=== PATIENT | female | born 1995 | race Caucasian/White ===

== ENCOUNTER 2020-02-22 14:08 | Emergency (ER) | payer OTHER ==
--- NOTE | 2020-02-22 14:21 | PDOC ---
Rapid Medical Evaluation Time Seen by Provider: 02/22/20 14:15 Medical Evaluation: Allergies Allergy/AdvReac Type Severity Reaction Status Date / Time No Known Allergies Allergy Verified 02/22/20 14:14 02/22/20 14:15 Pt is currently 38 weeks , presenting to the ER today for lightheadedness, swelling and headache. She states she is very swollen which worsened overnight. She is currently on methadone, missed her dose today d/t her symptoms. 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 Carvalho with [facility] Exam: 3+ swelling b/l. BP 140/88 DDX: Help syndrome with withdrawal ssx Will send to L&D for evaluation Discharge Disposition - Diagnosis Lightheaded Edema Qualifiers: Edema type: unspecified Qualified Code(s): R60.9 - Edema, unspecified - Referrals - Patient Instructions - Post Discharge Activity
[2020-02-22 14:23] VITALS: BMI 49.8
[2020-02-22 16:42] VITALS: BP 136/78; PULSE 94; TEMP 98
[2020-02-22 17:50] LABS: BASO % 0.2 % (0-2.0); EOS % 0.9 % (0-4.5); HEMATOCRIT 23.9 % (32.4-45.2); HEMOGLOBIN 7.2 GM/dL (10.7-15.3); LYMPH % 16.2 % (8-40); MCH 20.3 pg (25.7-33.7); MCHC 30.3 g/dl (32.0-36.0); MEAN PLT VOLUME 10.1 fl (7.5-11.1); MONO % 5.6 % (3.8-10.2); NEUT % 77.1 % (42.8-82.8); PLATELET COUNT 212 K/MM3 (134-434); RBC 3.56 M/mm3 (3.60-5.2); RDW 21.5 % (11.6-15.6); WHITE BLOOD COUNT 7.4 K/mm3 (4.0-10.0)
[2020-02-22] MEDS ORDERED: METHADONE HCL 10 MG TABLET (FOR DETOX USE ONLY) PO ONE (18:00)
[2020-02-22 18:03] LABS: URIC ACID 5.4 mg/dL (2.6-7.2)
[2020-02-22 18:06] LABS: RETICULOCYTES 2.78 % (0.5-1.5)
[2020-02-22] MEDS ORDERED: METHADONE HCL 10 MG TABLET ONE (18:15)
[2020-02-22] MEDS ORDERED: METHADONE 120 MG, METHADONE 20 MG PO ONE (18:15)
[2020-02-22] MEDS ORDERED: METHADONE HCL 40 MG DISPERSABLE TABLET ONE (18:16)
--- NOTE | 2020-02-22 19:21 | HP ---
Past Medical History - Primary Care Physician PCP:: Jessica Medina - Admission Chief Complaint: 24 yrs ,38.4 wks GA, previous c/section, presented in ER due to massive edema of feet , pain in legs , difficult to walk. c/o lightheaded. pt h/o substance abuse, on Methadone 140 mg po daily .She had not taking her today's Methadone dose. pt has pnc at [facility] History of Present Illness: pnc at [facility] 02/21/20 us 38.2/7 wks, m bpp10/10, h/o RHOGAM taken on 07/20/19 chart reviewed 06/12/19 O Neg, , rubella immune neg, varicell immune, hiv neg, hbsag neg , pavo viruus B19 ig pos, igM neg , h/h 11.3/33.4 , rpr nr ,TSH 3.64 pt states she was non compliant for visits she used cocaine & crack twice during pregn she went to [facility] for Methadone , 140 mg daily po pt states she was placed on monitor yesterday 02/21/20 for long time > 2hrs , aftervlt lateral position FHR was satisfactory she was discharged History Source: Patient, Medical Record Limitations to Obtaining History: No Limitations - Past Medical History 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 Weeks Gestation by Dates: 38.4 ...EDC by Dates: 02/28/20 ...EDC by Sono: 03/04/20 (38.4 by us ) Heme/Onc: Yes: Anemia Psych: Yes: Addictions (heroin & crack abuse rx at [facility] currently on methadone 140 mg po daily), Depression Musculoskeletal: Yes: Other (h/o autoimmune muscle joint problems) Endocrine: Yes: Hypothyroidism (s/p thyroidectomy rx po synthyroid 350mcg po dily) - Past Surgical History Past Surgical History: Yes: (06/16/2017), Tonsillectomy Hx Myomectomy: No Hx Transabdominal Cerclage: No Additional Surgical History: thyroidectomy in 2010 - Smoking History Smoking history: Never smoked Have you smoked in the past 12 months: Yes If you are a former smoker, when did you quit?: 06/2019 - Alcohol/Substance Use Hx Alcohol Use: No History of Substance Use: reports: Cocaine, Heroin Date of Last Use: 01/18/20 - Social History History of Recent Travel: No Home Medications - Allergies Allergies/Adverse Reactions: Allergies Allergy/AdvReac Type Severity Reaction Status Date / Time No Known Allergies Allergy Verified 02/22/20 14:14 - Home Medications Home Medications: Ambulatory Orders Buprenorphine/Naloxone HCl [Suboxone 12 mg-3 mg Sl Film] 140 tab SL DAILY 12/17/18 Clonazepam [Klonopin] 0.5 mg PO TID 12/17/18 Levothyroxine Sodium [Synthroid] 350 mcg PO DAILY 12/17/18 Review of Systems - Review of Systems Constitutional: reports: No Symptoms, Weakness, Other (lightheaded) Eyes: reports: No Symptoms. denies: Blind Spots, Blurred Vision HENT: reports: No Symptoms, Other (no headache) Neck: reports: No Symptoms Cardiovascular: reports: No Symptoms Respiratory: reports: No Symptoms Gastrointestinal: reports: No Symptoms Genitourinary: reports: No Symptoms Breasts: reports: No Symptoms Reported Musculoskeletal: reports: Joint Pain, Muscle Pain (lower extremities), Muscle Cramps, Muscle Weakness Integumentary: reports: No Symptoms Neurological: reports: No Symptoms Endocrine: reports: No Symptoms Hematology/Lymphatic: reports: No Symptoms Psychiatric: reports: Depression Physical Exam - Maternity Vital Signs: Vital Signs Temperature 98.0 F 02/22/20 16:24 Pulse Rate 94 H 02/22/20 16:24 Respiratory Rate 18 02/22/20 16:24 Blood Pressure 136/78 02/22/20 16:24 O2 Sat by Pulse Oximetry (%) 100 02/22/20 14:15 Constitutional: Yes: Pallor Eyes: Yes: WNL HENT: Yes: WNL Neck: Yes: WNL Cardiovascular: Yes: WNL Breast(s): Yes: WNL - Abdominal Exam/OB Fundal Height: 40 Number of Fetuses: Single Presentation: Vertex Regularity: Irregular Intensity: Unaware Monitor Mode: External Heart Rate (range): 160-150 Heart Rate Location: Midline Category: I Accelerations: Non-Uniform Decelerations: None - Vaginal Exam/OB Vaginal Bleeding: No Speculum Exam: No Dilatation (cm): close Effacement (%): uneffae Amniotic Membrane Status: Intact Presentation: Vertex/Position Station: -4 - Physical Exam Musculoskeletal: Yes: WNL Integumentary: Yes: Incision (pfannensteil scar) Deep Tendon Reflex Grade: Normal +2 - Labs Lab Results: CBC, BMP 02/22/20 17:05 Laboratory Tests 02/22/20 02/22/20 02/22/20 16:39 17:05 18:40 POC Glucometer 72 Uric Acid 5.4 GGT 20 AST 35 ALT 23 Urine Protein Opiates Screen Negative Methadone Screen Positive A* Barbiturate Screen Negative Phencyclidine Screen Negative Ur Amphetamines Screen Negative MDMA (Ecstasy) Screen Negative Benzodiazepines Screen Negative Cocaine Screen Negative U Marijuana (THC) Screen Negative 02/22/20 18:40 POC Glucometer Uric Acid GGT AST ALT Urine Protein Negative Opiates Screen Methadone Screen Barbiturate Screen Phencyclidine Screen Ur Amphetamines Screen MDMA (Ecstasy) Screen Benzodiazepines Screen Cocaine Screen U Marijuana (THC) Screen Problem List - Problems (1) with 38 completed weeks gestation Code(s): Z3A.38 - 38 WEEKS GESTATION OF (2) Previous section Code(s): Z98.891 - HISTORY OF UTERINE SCAR FROM PREVIOUS SURGERY (3) Substance abuse affecting , antepartum Code(s): O99.320 - DRUG USE COMPLICATING , UNSPECIFIED TRIMESTER (4) Edema Code(s): R60.9 - EDEMA, UNSPECIFIED Qualifiers: Edema type: gestational Trimester: third trimester Qualified Code(s): O12.03 - Gestational edema, third trimester (5) Anemia affecting in third trimester Code(s): O99.013 - ANEMIA COMPLICATING , THIRD TRIMESTER Assessment/Plan 24 yrs , 38.4 wks , previous c/s , substance abuse on Methadone , severe anemia, morbidly obese, severe edema of lower extremities , intially monitoring fhr 160-, acceleration to 180 . IV fluids given, no change after patient received Methadone dose 140 mg, fhr was normal. Ob US sliup. vx, 39.0 wks, afi9.3, efw 8' . Duplex study of lowe extremities neg for DVT . pt reg diet HELLP work up neg pt expressed to go back to her providers for c/section she is discharged with instructions to follow with her providers tomorrow. she was notified about sever anemia
[2020-02-22 19:28] LABS: ANISOCYTOSIS 2+; PLATELET ESTIMATE ADEQUATE
[2020-02-22 20:03] LABS: COCAINE, UR NEGATIVE ng/ml (CUTOFF=300); OPIATES, URI NEGATIVE ng/ml (CUTOFF=300); PHENCYCLIDINE,URINE NEGATIVE ng/ml (CUTOFF=25); URINE AMPHETAMINES NEGATIVE ng/ml (CUTOFF=500); URINE BARBITURATES NEGATIVE ng/ml (CUTOFF=200); URINE BENZODIAZEPINES NEGATIVE ng/ml (CUTOFF=200)
[2020-02-22 20:07] LABS: EPI CELLS 32 /uL (0-25.1); HYALINE CASTS 0 /uL (0-3.1); URINE APPEARANCE CLEAR; URINE BACTERIA 470 /uL (0-1359); URINE BILIRUBIN NEGATIVE (NEGATIVE); URINE COLOR YELLOW; URINE GLUCOSE (UA) NEGATIVE (NEGATIVE); URINE KETONE NEGATIVE (NEGATIVE); URINE LEUK ESTERASE 1+ (NEGATIVE); URINE NITRITE NEGATIVE (NEGATIVE); URINE PROTEIN NEGATIVE (NEGATIVE); URINE RBC 2 /uL (0-23.9); URINE WBC 7 /uL (0-25.8)
[2020-02-22 20:16] LABS: METHADONE, UR POSITIVE ng/ml (CUTOFF=300)
== END 2020-02-22 21:15 | disposition home or self-care (01) ==
LOC: JER 14:08
DX: R42 Dizziness and giddiness (principal); R60.9 Edema, unspecified
CPT/HCPCS: 36415; 76819-TC; 80307; 81003; 82962; 82977; 83010; 84450; 84460; 84550; 85025; 85032; 85045; 93970-TC; 99285-25

== ENCOUNTER 2020-04-22 10:26 | Emergency (ER) | payer OTHER ==
[2020-04-22 10:57] VITALS: BP 128/100; PULSE 100; TEMP 98.2; BMI 34.9
[2020-04-22] MEDS ORDERED: SODIUM CHLORIDE 1,000 ML IV STA (11:21)
[2020-04-22] MEDS ORDERED: ONDANSETRON 4 MG/2 ML VIAL IVPUSH ONE (11:22)
[2020-04-22] MEDS ORDERED: ONDANSETRON 4 MG/2 ML VIAL ONE (11:45)
[2020-04-22 12:45] LABS: BASO % 0.5 % (0-2.0); EOS % 1.3 % (0-4.5); HEMATOCRIT 40.5 % (32.4-45.2); HEMOGLOBIN 12.7 GM/dL (10.7-15.3); LYMPH % 21.2 % (8-40); MCH 22.9 pg (25.7-33.7); MCHC 31.4 g/dl (32.0-36.0); MONO % 4.4 % (3.8-10.2); NEUT % 72.6 % (42.8-82.8); PLATELET COUNT 367 K/MM3 (134-434); RBC 5.56 M/mm3 (3.60-5.2); RDW 21.6 % (11.6-15.6); WHITE BLOOD COUNT 7.9 K/mm3 (4.0-10.0)
[2020-04-22 13:10] LABS: ALBUMIN 3.7 g/dl (3.4-5.0); CALCIUM 9.4 mg/dL (8.5-10.1)
[2020-04-22 13:11] LABS: BLOOD UREA NITROGEN 14.5 mg/dL (7-18)
[2020-04-22 13:14] LABS: CREATININE 1.2 mg/dL (0.55-1.3)
[2020-04-22 13:15] LABS: BILIRUBIN,TOTAL 0.5 mg/dL (0.2-1); TOT PROT 8.3 g/dl (6.4-8.2)
[2020-04-22 13:16] LABS: ANISOCYTOSIS 2+; MACROCYTOSIS 0; PLATELET ESTIMATE NORMAL
[2020-04-22 13:18] LABS: EPI CELLS 15 /uL (0-25.1); HYALINE CASTS 102 /uL (0-3.1); PH,URINE 6.5 (5.0-8.0); URINE APPEARANCE CLOUDY; URINE BACTERIA 447 /uL (0-1359); URINE BILIRUBIN NEGATIVE (NEGATIVE); URINE COLOR DK YELLOW; URINE GLUCOSE (UA) NEGATIVE (NEGATIVE); URINE KETONE TRACE (NEGATIVE); URINE LEUK ESTERASE 2+ (NEGATIVE); URINE NITRITE NEGATIVE (NEGATIVE); URINE PROTEIN 1+ (NEGATIVE); URINE RBC 7 /uL (0-23.9); URINE WBC 925 /uL (0-25.8)
[2020-04-22 13:19] LABS: HCG,QUALITATIVE URINE Negative
[2020-04-22 13:32] LABS: POTASSIUM 7.4 mmol/L (3.5-5.1)
[2020-04-22] MEDS ORDERED: diphenhydrAMINE HCL 25 MG CAPSULE (FP) PO ONE ×2 (13:55→14:10)
== END 2020-04-22 14:37 | disposition left against medical advice (07) ==
LOC: JER 10:26
PROC: 3E033NZ Introduction of Analgesics, Hypnotics, Sedatives into Peripheral Vein, Percutaneous Approach (ICD-10-PCS; principal; 2020-04-22)
PROC: 3E0337Z Introduction of Electrolytic and Water Balance Substance into Peripheral Vein, Percutaneous Approach (ICD-10-PCS; 2020-04-22)
DX: F11.23 Opioid dependence with withdrawal (principal); R19.7 Diarrhea, unspecified
CPT/HCPCS: 36415; 80053; 81003; 83690; 84703; 85025; 87086; 99285-25

== ENCOUNTER 2020-05-05 11:27 | Emergency (ER) | payer OTHER ==
[2020-05-05 11:43] VITALS: BMI 34.9
[2020-05-05] MEDS ORDERED: METHADONE HCL 10 MG TABLET PO ONE (13:17)
[2020-05-05] MEDS ORDERED: METHADONE HCL 40 MG DISPERSABLE TABLET ONE (13:37)
[2020-05-05] MEDS ORDERED: METHADONE HCL 10 MG TABLET ONE (13:37)
[2020-05-05 13:52] VITALS: BP 128/75; PULSE 64
== END 2020-05-05 13:52 | disposition home or self-care (01) ==
LOC: JER 11:27 → JERFT 11:27
DX: Z79.891 Long term (current) use of opiate analgesic (principal)
CPT/HCPCS: 99283-25

== ENCOUNTER 2020-05-09 14:18 | Emergency (ER) | payer OTHER ==
[2020-05-09 14:25] VITALS: TEMP 98.6; BMI 37.8
[2020-05-09] MEDS ORDERED: ACETAMINOPHEN 1000 MG/100 ML VIAL (NON FORMULARY) IVPB ONE (15:30)
[2020-05-09] MEDS ORDERED: ACETAMINOPHEN INJECTION 100 ML IVPB ONE (16:07)
[2020-05-09] MEDS ORDERED: cloNIDine HCL 0.1 MG TABLET PO ONE (16:19)
[2020-05-09 16:41] LABS: BASO % 0.4 % (0-2.0); EOS % 4.4 % (0-4.5); HEMATOCRIT 34.2 % (32.4-45.2); HEMOGLOBIN 10.4 GM/dL (10.7-15.3); LYMPH % 34.1 % (8-40); MCH 22.6 pg (25.7-33.7); MCHC 30.4 g/dl (32.0-36.0); MEAN CELL VOLUME 74.5 fl (80-96); MONO % 7.5 % (3.8-10.2); NEUT % 53.6 % (42.8-82.8); PLATELET COUNT 220 K/MM3 (134-434); RBC 4.59 M/mm3 (3.60-5.2); RDW 19.9 % (11.6-15.6); WHITE BLOOD COUNT 6.1 K/mm3 (4.0-10.0)
[2020-05-09 17:02] VITALS: BP 126/72; PULSE 85
[2020-05-09 17:04] LABS: POTASSIUM 4.2 mmol/L (3.5-5.1)
[2020-05-09] MEDS ORDERED: cloNIDine HCL 0.1 MG TABLET ONE (17:05)
[2020-05-09 17:06] LABS: BLOOD UREA NITROGEN 11.9 mg/dL (7-18); CALCIUM 8.7 mg/dL (8.5-10.1)
[2020-05-09 17:07] LABS: ALBUMIN 3.4 g/dl (3.4-5.0)
[2020-05-09 17:09] LABS: CREATININE 0.7 mg/dL (0.55-1.3)
[2020-05-09 17:11] LABS: BILIRUBIN,TOTAL 0.2 mg/dL (0.2-1); TOT PROT 6.9 g/dl (6.4-8.2)
[2020-05-09 17:40] LABS: ERYTHROCYTE SEDIMENTATION RATE 39 mm/hr (0-20)
[2020-05-09] MEDS ORDERED: KETOROLAC TROMETHAMINE 30 MG/1 ML VIAL IM ONE (17:41)
[2020-05-09] MEDS ORDERED: KETOROLAC TROMETHAMINE 30 MG/1 ML VIAL ONE (17:49)
[2020-05-09 18:38] LABS: ADD RBC MORPHOLOGY YES; ANISOCYTOSIS 1+
== END 2020-05-09 19:00 | disposition home or self-care (01) ==
LOC: JER 14:18
PROC: 3E033GC Introduction of Other Therapeutic Substance into Peripheral Vein, Percutaneous Approach (ICD-10-PCS; principal; 2020-05-09)
PROC: 3E023GC Introduction of Other Therapeutic Substance into Muscle, Percutaneous Approach (ICD-10-PCS; principal; 2020-05-09)
DX: M25.50 Pain in unspecified joint (principal)
CPT/HCPCS: 36415; 80053; 84703; 85025; 85651; 86140; 99284-25; J0131; J0735

== ENCOUNTER 2020-08-11 13:12 | Inpatient (IN) | payer OTHER ==
[2020-08-11] MEDS ORDERED: MENTHOL/PHENOL 1 EACH UD MM PRN (14:46)
[2020-08-11] MEDS ORDERED: ACETAMINOPHEN 325 MG TABLET (FP) PO PRN ×2 (14:46)
[2020-08-11] MEDS ORDERED: MAGNESIUM HYDROX 2400MG/30ML ORAL SUSPENSION 30 ML CUP PO PRN (14:46)
[2020-08-11] MEDS ORDERED: NICOTINE POLACRILEX 2 MG GUM BUC PRN (14:46)
[2020-08-11] MEDS ORDERED: ONDANSETRON *ODT* 4 MG TABLET SL PRN (14:46)
[2020-08-11] MEDS ORDERED: MAGNESIUM CITRATE 300 ML BOTTLE PO PRN (14:46)
[2020-08-11] MEDS ORDERED: MAG HYDROX/AL HYDROX/SIMETH 30 ML UNIT-DOSE CUP PO PRN (14:46)
[2020-08-11] MEDS ORDERED: BISMUTH SUBSALICYLATE 524 MG/30 ML UD PO PRN (14:46)
[2020-08-11] MEDS ORDERED: METHADONE HCL 10 MG TABLET (FOR DETOX USE ONLY) PO ONE (15:15)
[2020-08-11 15:26] VITALS: BMI 42.3
[2020-08-11 16:25] LABS: HEMOGLOBIN 13.7 GM/dL (10.7-15.3); MCHC 32.7 g/dl (32.0-36.0); MEAN CELL VOLUME 82.5 fl (80-96); MEAN PLT VOLUME 10.3 fl (7.5-11.1); PLATELET COUNT 276 K/MM3 (134-434); POTASSIUM 4.4 mmol/L (3.5-5.1); RBC 5.09 M/mm3 (3.60-5.2); RDW 20.7 % (11.6-15.6); WHITE BLOOD COUNT 5.9 K/mm3 (4.0-10.0)
[2020-08-11 16:40] LABS: ALBUMIN 4.5 g/dl (3.4-5.0); BILIRUBIN,TOTAL 0.6 mg/dL (0.2-1); BLOOD UREA NITROGEN 7.8 mg/dL (7-18); CREATININE 0.9 mg/dL (0.55-1.3); TOT PROT 8.8 g/dl (6.4-8.2)
[2020-08-11] MEDS: PRENATAL VITAMINS W/ FOLIC ACID TABLET (FP) PO SCH (18:00)
[2020-08-11] MEDS: NICOTINE 21 MG/24 HOURS TOPICAL PATCH TD SCH (18:02)
[2020-08-11] MEDS: METHOCARBAMOL 500 MG TABLET PO PRN (18:02)
[2020-08-11] MEDS: hydrOXYzine PAMOATE 25 MG CAPSULE (FP) PO SCH ×2 (18:02→22:27)
[2020-08-11] MEDS: LEVOTHYROXINE NA 100 MCG TABLET (FP) PO SCH (18:05)
[2020-08-11] MEDS: IBUPROFEN 400 MG TABLET (FP) PO PRN (20:14)
[2020-08-11] MEDS: cloNIDine HCL 0.1 MG TABLET PO PRN (20:14)
[2020-08-11] MEDS: MELATONIN 5 MG TABLETS PO SCH (22:27)
[2020-08-11] MEDS: THIAMINE HCL 100 MG TABLET (FP) PO SCH (22:27)
[2020-08-12] MEDS: METHOCARBAMOL 500 MG TABLET PO PRN ×3 (05:51→22:33)
[2020-08-12] MEDS: hydrOXYzine PAMOATE 25 MG CAPSULE (FP) PO SCH ×5 (05:51→22:32)
[2020-08-12] MEDS: cloNIDine HCL 0.1 MG TABLET PO PRN ×2 (05:52→22:32)
[2020-08-12] MEDS: LEVOTHYROXINE NA 100 MCG TABLET (FP) PO SCH (06:41)
[2020-08-12] MEDS ORDERED: METHADONE HCL 10 MG TABLET (FOR DETOX USE ONLY) ONE (08:33)
[2020-08-12] MEDS ORDERED: METHADONE HCL 5 MG TABLET (FOR DETOX USE ONLY) ONE (08:33)
[2020-08-12] MEDS: NICOTINE 21 MG/24 HOURS TOPICAL PATCH TD SCH (09:32)
[2020-08-12] MEDS: PRENATAL VITAMINS W/ FOLIC ACID TABLET (FP) PO SCH (09:32)
[2020-08-12] MEDS ORDERED: METHADONE (DETOX) 20 MG, METHADONE (DETOX) 5 MG PO ONE (10:00)
[2020-08-12] MEDS: MELATONIN 5 MG TABLETS PO SCH (22:32)
[2020-08-12] MEDS: THIAMINE HCL 100 MG TABLET (FP) PO SCH (22:32)
[2020-08-13] MEDS: LEVOTHYROXINE NA 100 MCG TABLET (FP) PO SCH (06:55)
[2020-08-13] MEDS: hydrOXYzine PAMOATE 25 MG CAPSULE (FP) PO SCH ×5 (06:55→21:16)
[2020-08-13] MEDS ORDERED: METHADONE HCL 10 MG TABLET (FOR DETOX USE ONLY) PO ONE (10:00)
[2020-08-13] MEDS: PRENATAL VITAMINS W/ FOLIC ACID TABLET (FP) PO SCH (10:47)
[2020-08-13] MEDS: NICOTINE 21 MG/24 HOURS TOPICAL PATCH TD SCH (10:47)
[2020-08-13] MEDS: cloNIDine HCL 0.1 MG TABLET PO PRN ×2 (10:49→19:55)
[2020-08-13] MEDS: METHOCARBAMOL 500 MG TABLET PO PRN (18:14)
[2020-08-13] MEDS: IBUPROFEN 400 MG TABLET (FP) PO PRN (18:14)
[2020-08-13] MEDS: MELATONIN 5 MG TABLETS PO SCH (21:16)
[2020-08-13] MEDS: THIAMINE HCL 100 MG TABLET (FP) PO SCH (21:16)
[2020-08-14] MEDS: LEVOTHYROXINE NA 100 MCG TABLET (FP) PO SCH (06:54)
[2020-08-14] MEDS: hydrOXYzine PAMOATE 25 MG CAPSULE (FP) PO SCH ×2 (07:00→10:08)
[2020-08-14] MEDS: METHOCARBAMOL 500 MG TABLET PO PRN ×2 (07:03→14:37)
[2020-08-14] MEDS: IBUPROFEN 400 MG TABLET (FP) PO PRN (07:03)
[2020-08-14] MEDS ORDERED: METHADONE HCL 10 MG TABLET (FOR DETOX USE ONLY) ONE (08:46)
[2020-08-14] MEDS ORDERED: METHADONE HCL 5 MG TABLET (FOR DETOX USE ONLY) ONE (08:46)
[2020-08-14] MEDS ORDERED: METHADONE (DETOX) 10 MG, METHADONE (DETOX) 5 MG PO ONE (10:00)
[2020-08-14] MEDS: PRENATAL VITAMINS W/ FOLIC ACID TABLET (FP) PO SCH (10:07)
[2020-08-14] MEDS: NICOTINE 21 MG/24 HOURS TOPICAL PATCH TD SCH (10:07)
[2020-08-14] MEDS ORDERED: diazePAM 5 MG TABLET PO PRN (13:00)
[2020-08-14] MEDS ORDERED: hydrOXYzine PAMOATE 25 MG CAPSULE (FP) PO PRN (13:01)
[2020-08-14 17:29] VITALS: BP 148/78; PULSE 100; TEMP 97.3
[2020-08-15] MEDS ORDERED: METHADONE HCL 10 MG TABLET (FOR DETOX USE ONLY) PO ONE (10:00)
[2020-08-16] MEDS ORDERED: METHADONE HCL 5 MG TABLET (FOR DETOX USE ONLY) PO ONE (06:00)
== END 2020-08-14 17:30 | disposition left against medical advice (07) | DRG 770 ==
LOC: YASAS 13:12 → Y3N 16:31
PROVIDERS: ADMIT Allergy & Immunology; ATTEND Allergy & Immunology
PROC: HZ2ZZZZ Detoxification Services for Substance Abuse Treatment (ICD-10-PCS; principal; 2020-08-11)
DX: F11.23 Opioid dependence with withdrawal (principal); F14.10 Cocaine abuse, uncomplicated; F17.210 Nicotine dependence, cigarettes, uncomplicated; F41.8 Other specified anxiety disorders; D64.9 Anemia, unspecified; M45.9 Ankylosing spondylitis of unspecified sites in spine; E89.0 Postprocedural hypothyroidism; R74.8 Abnormal levels of other serum enzymes; R74.01 Elevation of levels of liver transaminase levels
CPT/HCPCS: 36415; 80053; 81025; 85027; 86780; C9803; J0735; U0003; U0005

== ENCOUNTER 2020-12-03 04:10 | Emergency (ER) | payer OTHER ==
[2020-12-03 04:22] VITALS: BMI 43.4
[2020-12-03 06:46] LABS: BASO % 0.3 % (0-2.0); EOS % 6.8 % (0-4.5); HEMATOCRIT 32.5 % (32.4-45.2); HEMOGLOBIN 10.6 GM/dL (10.7-15.3); LYMPH % 30.4 % (8-40); MCH 26.6 pg (25.7-33.7); MCHC 32.5 g/dl (32.0-36.0); MEAN PLT VOLUME 8.9 fl (7.5-11.1); MONO % 5.7 % (3.8-10.2); NEUT % 56.8 % (42.8-82.8); PLATELET COUNT 212 10^3/uL (134-434); RBC 3.97 M/mm3 (3.60-5.2); RDW 13.8 % (11.6-15.6); WHITE BLOOD COUNT 6.4 K/mm3 (4.0-10.0)
[2020-12-03 07:14] LABS: ALBUMIN 3.6 g/dl (3.4-5.0); CALCIUM 8.2 mg/dL (8.5-10.1)
[2020-12-03 07:15] LABS: BLOOD UREA NITROGEN 10.9 mg/dL (7-18)
[2020-12-03 07:18] LABS: CREATININE 0.9 mg/dL (0.55-1.3)
[2020-12-03 07:19] LABS: BILIRUBIN,TOTAL 0.4 mg/dL (0.2-1); TOT PROT 6.6 g/dl (6.4-8.2)
[2020-12-03 07:24] LABS: INR 1.09 (0.83-1.09); PROTHROMBIN TIME (PATIENT) 13.1 SEC (9.7-13.0)
[2020-12-03 07:27] LABS: ACTIVATED PTT 32.5 SECONDS (25.2-36.5)
[2020-12-03] MEDS ORDERED: KETOROLAC TROMETHAMINE 15 MG/ML VIAL IVPUSH ONE (09:43)
[2020-12-03] MEDS ORDERED: KETOROLAC TROMETHAMINE 15 MG/ML VIAL ONE (10:43)
[2020-12-03 11:06] VITALS: BP 124/72; PULSE 80; TEMP 98
== END 2020-12-03 12:13 | disposition home or self-care (01) ==
LOC: JER 04:10
PROC: 3E0333Z Introduction of Anti-inflammatory into Peripheral Vein, Percutaneous Approach (ICD-10-PCS; principal; 2020-12-03)
DX: Z04.3 Encounter for examination and observation following other accident (principal)
CPT/HCPCS: 36415; 70450-TC; 71260-TC; 72125-TC; 74177-TC; 80053; 80307; 84703; 85025; 85610; 85730; 99285-25; Q9967